=== PATIENT | male | born 1935 | race Two or more races ===

== ENCOUNTER 2018-01-26 03:17 | Inpatient (IN) | payer OTHER ==
[~2018-01-26] VITALS: Ht 180.3 cm; Wt 60.0 kg
[2018-01-26] MEDS ORDERED: ALBUTEROL (0.083%) 2.5MG/3ML NEB HHN STA (03:32)
[2018-01-26] MEDS ORDERED: IPRATROPIUM BROMIDE (0.02%) 0.5MG/2.5ML NEB HHN STA (03:32)
[2018-01-26] MEDS ORDERED: METHYLPREDNISOLONE SOD SUCC 125 MG/2 ML VIAL IV STA (03:32)
[2018-01-26] MEDS ORDERED: LEVOFLOXACIN 750MG PREMIX 150 ML IV ONE (03:45)
[2018-01-26] MEDS ORDERED: ACETAMINOPHEN 325MG TABLET PO ONE (03:45)
[2018-01-26] MEDS ORDERED: ASPIRIN 81MG TABLET PO ONE (03:45)
[2018-01-26] MEDS ORDERED: MAGNESIUM 2 G PREMIX 50 ML IV ONE (03:45)
[2018-01-26] MEDS ORDERED: NITROGLYCERIN OINT 1GM/INCH UDPKT TD ONE (03:45)
[2018-01-26 04:19] LABS: CLARITY URINE CLOUDY (CLEAR); COLOR URINE DARK YELLOW (YELLOW); KETONES URINE 1+ (NEGATIVE); LEUKOCYTE ESTERASE URINE 2+ (NEGATIVE); NITRITE URINE POSITIVE (NEGATIVE); OCCULT BLOOD URINE 3+ (NEGATIVE); PH URINE 5.5 (4.5-8.0); PROTEIN URINE 2+ (NEGATIVE); SPECIFIC GRAVITY URINE 1.027 (1.005-1.030)
[2018-01-26 04:36] LABS: *AMPHETAMINES SCREEN URINE NEGATIVE (NEGATIVE); *BARBITURATES SCREEN URINE NEGATIVE (NEGATIVE); *BENZODIAZEPINES SCREEN URINE NEGATIVE (NEGATIVE); *COCAINE SCREEN URINE NEGATIVE (NEGATIVE); CANNABINOID URINE SCREEN NEGATIVE (NEGATIVE); METHADONE URINE SCREEN NEGATIVE (NEGATIVE); OPIATES URINE SCREEN NEGATIVE (NEGATIVE); PHENCYCLIDINE URINE SCREEN NEGATIVE (NEGATIVE)
[2018-01-26 04:53] LABS: BG CARBOXYHEMOGLOBIN 0.6 % (0.5-1.5); BG DEOXYHEMOGLOBIN 2.7 % (0.0-5.0); BG FRACTION INSPIRED OXYGEN 36; BG HCO3 ACT 20.9 mmol/L (22.0-26.0); BG METHEMOGLOBIN 0.3 % (0.0-1.5); BG OXYGEN SATURATION 97.3 % (92.0-98.5); BG OXYHEMOGLOBIN 96.4 % (94.0-97.0); BG PCO2 30.3 mmHg (35.0-45.0); BG PH 7.456 (7.350-7.450); BG PO2 97.9 mmHg (75.0-100.0); BG SAMPLE SITE RIGHT RADIAL; BG TOTAL HEMOGLOBIN 12.6 g/dL (12.0-18.0); BG VENT MODE NASAL CANNULA
[2018-01-26 05:26] LABS: HEMATOCRIT. 34.5 % (42.0-52.0); HEMOGLOBIN. 11.7 g/dL (14.0-18.0); MEAN CORPUSCULAR HEMOGLOBIN 30.4 pg (28.0-32.0); MEAN CORPUSCULAR VOLUME 89.6 fL (80.0-94.0); MEAN PLATELET VOLUME 7.2 fl (7.4-10.4); PLATELET 294 x1000/uL (130-400); RED BLOOD CELL COUNT 3.86 mill/uL (4.7-6.1); RED CELL DISTRIBUTION WIDTH 13.7 % (11.6-14.6)
[2018-01-26 05:34] LABS: CHLORIDE 99 mEq/L (98-107); ETHANOL BLOOD < 10 mg/dL
[2018-01-26 05:38] LABS: INR 1.1; PROTHROMBIN TIME 10.9 sec (9.4-11.6)
[2018-01-26 07:33] LABS: PLATELET ESTIMATE NORMAL
[2018-01-26] MEDS ORDERED: DOCUSATE SODIUM 100MG CAPSULE PO PRN (09:15)
[2018-01-26] MEDS ORDERED: MAGNESIUM/ALUMINUM HYDROXIDE/SIMETHICONE 30ML UDC PO PRN (09:15)
[2018-01-26] MEDS ORDERED: CLONIDINE 0.1MG TABLET PO PRN (09:15)
[2018-01-26] MEDS ORDERED: IPRATROPIUM/ALBUTEROL 0.5-3(2.5)MG/3ML NEB INH PRN (09:15)
[2018-01-26] MEDS ORDERED: ONDANSETRON HCL 4MG/2ML VIAL IV PRN (09:15)
[2018-01-26] MEDS ORDERED: NITROGLYCERIN 0.4MG TABLET SL SL PRN (09:15)
[2018-01-26] MEDS ORDERED: GUAIFENESIN 200MG/10ML SUGAR FREE UDC PO PRN (09:15)
[2018-01-26] MEDS ORDERED: ACETAMINOPHEN 325MG TABLET PO PRN (09:15)
[2018-01-26] MEDS ORDERED: DIPHENHYDRAMINE 50MG/ML VIAL IV PRN (09:15)
[2018-01-26] MEDS ORDERED: MORPHINE SULFATE 4 MG/ML CPJ (NOT FOR IM USE) IV PRN (09:15)
[2018-01-26] MEDS ORDERED: LORAZEPAM 0.5MG TABLET PO PRN (09:15)
[2018-01-26] MEDS ORDERED: DEXTROSE 50% WATER 50ML SYRINGE IV PRN (09:30)
[2018-01-26] MEDS: IPRATROPIUM/ALBUTEROL 0.5-3(2.5)MG/3ML NEB HHN SCH (14:35)
[2018-01-26] MEDS: METHYLPREDNISOLONE SOD SUCC 125 MG/2 ML VIAL IV SCH ×2 (14:53→21:25)
[2018-01-26 15:24] LABS: CREATINE KINASE 1261 IU/L (39-308); CREATINE KINASE MB FRACTION 4.5 ng/mL (0.5-3.6)
[2018-01-26] MEDS ORDERED: TRAMADOL 50MG TABLET PO PRN (16:45)
[2018-01-26] MEDS: BLOOD SUGAR DIAGNOSTIC STRIP TEST SCH ×2 (17:00→21:26)
[2018-01-26 18:00] VITALS: BP 114/68
[2018-01-26 18:17] VITALS: BP 114/68
[2018-01-26] MEDS: INSULIN LISPRO 100 UNITS/ML SUBCUT SCH ×2 (19:01→21:33)
[2018-01-26 20:00] VITALS: BP 102/60
[2018-01-26] MEDS ORDERED: ZOLPIDEM TARTRATE 5MG TABLET PO PRN (21:00)
[2018-01-26] MEDS ORDERED: NA PHOS,M-B/NA PHOS,DI-BA ENEMA 118ML PR PRN (21:00)
[2018-01-26] MEDS: GUAIFENESIN/DM 600MG/30MG ER TAB 12HR PO SCH (21:25)
[2018-01-26] MEDS: FAMOTIDINE 20MG/2ML VIAL IV SCH (21:25)
[2018-01-26] MEDS: ENOXAPARIN 40MG/0.4ML SYR SUBCUT SCH (21:26)
[2018-01-27] VITALS: BP 110/80
[2018-01-27 00:11] LABS: CREATINE KINASE 1384 IU/L (39-308)
[2018-01-27] MEDS: IPRATROPIUM/ALBUTEROL 0.5-3(2.5)MG/3ML NEB HHN SCH ×4 (00:19→20:39)
[2018-01-27 04:00] VITALS: BP 128/60
[2018-01-27] MEDS ORDERED: LEVOFLOXACIN 500MG PREMIX 100 ML IV SCH (06:00)
[2018-01-27] MEDS: METHYLPREDNISOLONE SOD SUCC 125 MG/2 ML VIAL IV SCH ×2 (06:09→14:00)
[2018-01-27] MEDS: BLOOD SUGAR DIAGNOSTIC STRIP TEST SCH ×4 (06:09→21:17)
[2018-01-27] MEDS: INSULIN LISPRO 100 UNITS/ML SUBCUT SCH ×4 (06:58→21:19)
[2018-01-27 07:50] VITALS: BP 111/63
[2018-01-27] MEDS: GUAIFENESIN/DM 600MG/30MG ER TAB 12HR PO SCH ×2 (08:46→21:12)
[2018-01-27] MEDS: ASPIRIN 325MG EC TABLET PO SCH (08:46)
[2018-01-27] MEDS: FAMOTIDINE 20MG/2ML VIAL IV SCH ×2 (08:47→21:13)
[2018-01-27] MEDS: CEFTRIAXONE 1 G PREMIX 50 ML IV SCH (12:14)
[2018-01-27 12:48] LABS: HEMATOCRIT. 37.8 % (42.0-52.0); HEMOGLOBIN. 13.2 g/dL (14.0-18.0); MEAN CORPUSCULAR HEMOGLOBIN 31.1 pg (28.0-32.0); MEAN CORPUSCULAR VOLUME 89.3 fL (80.0-94.0); MEAN PLATELET VOLUME 7.9 fl (7.4-10.4); PLATELET 352 x1000/uL (130-400); RED BLOOD CELL COUNT 4.24 mill/uL (4.7-6.1); RED CELL DISTRIBUTION WIDTH 13.7 % (11.6-14.6)
[2018-01-27 13:18] LABS: CHLORIDE 102 mEq/L (98-107)
[2018-01-27 14:55] LABS: PLATELET ESTIMATE NORMAL
[2018-01-27 15:32] VITALS: BP_SYST 106; BP_SYST 112; BP_DIAS 55; BP_DIAS 69
[2018-01-27] MEDS ORDERED: POTASSIUM CHLORIDE 20MEQ TABLET SR PO NR (16:00)
[2018-01-27] MEDS: METRONIDAZOLE 500 MG PREMIX 100 ML IV SCH (17:52)
[2018-01-27 20:00] VITALS: BP_SYST 102; BP_SYST 130; BP_SYST 95; BP_DIAS 55; BP_DIAS 58; BP_DIAS 83
[2018-01-27] MEDS: BUDESONIDE 0.5MG/2ML NEB HHN SCH (20:40)
[2018-01-27] MEDS: ENOXAPARIN 40MG/0.4ML SYR SUBCUT SCH (21:16)
[2018-01-27] MEDS: INSULIN GLARGINE UD 100 UNITS/ML SYR SUBCUT SCH (21:19)
[2018-01-28] VITALS: BP_SYST 96; BP_SYST 98; BP_DIAS 18; BP_DIAS 48
[2018-01-28] MEDS: METRONIDAZOLE 500 MG PREMIX 100 ML IV SCH ×3 (01:02→17:34)
[2018-01-28] MEDS: IPRATROPIUM/ALBUTEROL 0.5-3(2.5)MG/3ML NEB HHN SCH ×4 (02:15→20:20)
[2018-01-28 04:00] VITALS: BP 100/54
[2018-01-28] MEDS: INSULIN LISPRO 100 UNITS/ML SUBCUT SCH ×4 (06:30→21:30)
[2018-01-28] MEDS: BLOOD SUGAR DIAGNOSTIC STRIP TEST SCH ×4 (06:30→21:00)
[2018-01-28 08:00] VITALS: BP_SYST 79; BP_SYST 84; BP_SYST 92; BP_SYST 95; BP_DIAS 33; BP_DIAS 45; BP_DIAS 50; BP_DIAS 62
[2018-01-28] MEDS: LEVOFLOXACIN 500MG PREMIX 100 ML IV SCH (08:04)
[2018-01-28] MEDS: BUDESONIDE 0.5MG/2ML NEB HHN SCH ×2 (09:05→20:20)
[2018-01-28] MEDS: ASPIRIN 325MG EC TABLET PO SCH (09:40)
[2018-01-28] MEDS: FAMOTIDINE 20MG/2ML VIAL IV SCH ×2 (09:41→22:28)
[2018-01-28] MEDS ORDERED: SODIUM CHLORIDE 0.9% 1,000 ML IV NR (10:45)
[2018-01-28] MEDS: DEXT 5%/0.45% NACL KCL 10MEQ/L 1,000 ML IV SCH ×2 (12:19→22:29)
[2018-01-28] MEDS: GUAIFENESIN/DM 600MG/30MG ER TAB 12HR PO SCH ×3 (12:19→22:28)
[2018-01-28] MEDS: CEFTRIAXONE 1 G PREMIX 50 ML IV SCH (12:19)
[2018-01-28 15:12] LABS: BASOPHILS % 0.2 % (0.0-2.0); HEMATOCRIT. 33.7 % (42.0-52.0); HEMOGLOBIN. 11.7 g/dL (14.0-18.0); LYMPHOCYTES % 9.6 % (20.0-50.0); MEAN CORPUSCULAR HEMOGLOBIN 30.8 pg (28.0-32.0); MEAN PLATELET VOLUME 7.6 fl (7.4-10.4); MONOCYTES % 9.2 % (2.0-8.0); PLATELET 369 x1000/uL (130-400); RED BLOOD CELL COUNT 3.79 mill/uL (4.7-6.1); RED CELL DISTRIBUTION WIDTH 13.4 % (11.6-14.6)
[2018-01-28 15:46] LABS: CHLORIDE 108 mEq/L (98-107)
[2018-01-28 16:00] VITALS: BP 100/59
[2018-01-28 18:06] LABS: FOLIC ACID (FOLATE) SERUM 9.4 ng/mL (>5.38)
[2018-01-28 20:00] VITALS: BP_SYST 74; BP_SYST 96; BP_DIAS 34; BP_DIAS 56
[2018-01-28] MEDS: ENOXAPARIN 40MG/0.4ML SYR SUBCUT SCH ×2 (21:00→22:30)
[2018-01-28] MEDS: INSULIN GLARGINE UD 100 UNITS/ML SYR SUBCUT SCH (22:00)
[2018-01-29] MEDS: METRONIDAZOLE 500 MG PREMIX 100 ML IV SCH ×2 (01:12→09:10)
[2018-01-29] MEDS: IPRATROPIUM/ALBUTEROL 0.5-3(2.5)MG/3ML NEB HHN SCH ×2 (02:25→07:38)
[2018-01-29] MEDS: BLOOD SUGAR DIAGNOSTIC STRIP TEST SCH (06:22)
[2018-01-29] MEDS: DEXT 5%/0.45% NACL KCL 10MEQ/L 1,000 ML IV SCH (06:23)
[2018-01-29] MEDS: INSULIN LISPRO 100 UNITS/ML SUBCUT SCH (06:23)
[2018-01-29] MEDS: BUDESONIDE 0.5MG/2ML NEB HHN SCH (07:38)
[2018-01-29] MEDS: LEVOFLOXACIN 500MG PREMIX 100 ML IV SCH (08:00)
[2018-01-29] MEDS: FAMOTIDINE 20MG/2ML VIAL IV SCH (09:00)
[2018-01-29] MEDS: GUAIFENESIN/DM 600MG/30MG ER TAB 12HR PO SCH (09:04)
[2018-01-29] MEDS: ASPIRIN 325MG EC TABLET PO SCH (09:04)
== END 2018-01-29 13:15 | disposition home or self-care (01) | DRG 871 ==
LOC: ER 03:17 → 5WST 04:50 → SUPCPDRO 09:05 → ENRESERV 16:18 → CANBEDREQ 16:20
PROVIDERS: ADMIT Internal Medicine; ATTEND Internal Medicine
DX: A41.9 Sepsis, unspecified organism (principal); E43 Unspecified severe protein-calorie malnutrition; G92 Toxic encephalopathy; J18.1 Lobar pneumonia, unspecified organism; M62.82 Rhabdomyolysis; D63.8 Anemia in other chronic diseases classified elsewhere; E83.51 Hypocalcemia; E11.9 Type 2 diabetes mellitus without complications; N39.0 Urinary tract infection, site not specified; E87.1 Hypo-osmolality and hyponatremia; Z68.1 Body mass index [BMI] 19.9 or less, adult; J43.9 Emphysema, unspecified; B96.89 Other specified bacterial agents as the cause of diseases classified elsewhere; E87.6 Hypokalemia; I10 Essential (primary) hypertension; I95.1 Orthostatic hypotension; G90.8 Other disorders of autonomic nervous system; B96.20 Unspecified Escherichia coli [E. coli] as the cause of diseases classified elsewhere; Z86.73 Personal history of transient ischemic attack (TIA), and cerebral infarction without residual deficits; Z87.891 Personal history of nicotine dependence
CPT/HCPCS: 36415; 36600; 70450; 70551; 71045; 74176; 80048; 80053; 80061; 80305; 81003; 82375; 82550; 82553; 82607; 82746; 82805; 82962; 83036; 83605; 83690; 83880; 84443; 84484; 85025; 85610; 87040; 87077; 87086; 87186; 87804; 93005; 94640; 96374; 96375; 97162; 97166; 97530; 99291; G0482; J0696; J1650; J1815; J1956; J2930; J3475; J3490; J7030; J7050; J7620; J7626